=== PATIENT | male | born 1975 | race Caucasian/White ===

== ENCOUNTER 2018-06-07 04:29 | Emergency (ER) | payer MEDICAID, OTHER ==
[~2018-06-07] VITALS: Ht 167.6 cm; Wt 81.6 kg
[~2018-06-07 04:29] MED LIST: DIVA500T53 PO; PHEN100C70 PO
[2018-06-07] MEDS ORDERED: ONDANSETRON HCL 4 MG/2 ML VIAL IV ONE (05:00)
[2018-06-07] MEDS ORDERED: SODIUM CHLORIDE 0.9% 1,000 ML IV ONE (05:00)
[2018-06-07] MEDS ORDERED: NALBUPHINE HCL 10 MG/1ml INJECTION IV ONE (05:00)
[2018-06-07] MEDS ORDERED: PANTOPRAZOLE 40 MG/10 ML VIAL IV ONE (05:00)
[2018-06-07 05:50] LABS: Basophils # (auto) 0.1 uL; Basophils % (auto) 0.5 % (0.0-2.0); Eosinophils # (auto) 0.3 uL; Eosinophils % (auto) 2.5 % (0.0-7.0); Hemoglobin 15.1 g/dL (13.5-17.5); Lymphocytes # (auto) 1.8 uL; Lymphocytes % (auto) 15.2 % (10.0-50.0); Mean Corpuscular Hemoglobin 30.6 pg (28.0-32.0); Mean Corpuscular Hgb Conc. 34.3 g/dL (32.0-36.0); Mean Corpuscular Volume 89.4 fL (80.0-100.0); Monocytes # (auto) 0.8 uL; Monocytes % (auto) 7.1 % (0.0-12.0); Neutrophils # (auto) 8.7 uL; Neutrophils % (auto) 74.7 % (37.0-80.0); Platelet Count (auto) 301 10^3/uL (140-450); Red Blood Cells 4.92 10^6/uL (4.5-5.90); Red Cell Distribution Width 13.2 % (11.8-14.3); White Blood Cell 11.6 10^3/uL (4.4-10.8)
[2018-06-07 06:04] LABS: Amylase 72 U/L (25-115); Lipase 117 U/L (73-393)
[2018-06-07 06:06] LABS: INR 0.96 (0.9-1.15); Partial Thromboplastin Time 30.6 sec (23.78-33.04); Prothrombin Time 10.3 sec (9.27-12.13)
[2018-06-07 06:08] LABS: Albumin 3.8 g/dL (3.4-5.0); Calcium 9.5 mg/dL (8.5-10.1); Magnesium 2.2 mg/dL (1.6-2.6); Potassium 3.3 mmol/L (3.5-5.1)
[2018-06-07 06:11] LABS: BUN/Creatinine Ratio 10.2; Bilirubin, Total 0.9 mg/dL (0.2-1.0); Total Protein 7.7 g/dL (6.4-8.2)
[2018-06-07] MEDS ORDERED: POTASSIUM CHL 10% (20 MEQ/15ML) 15ml ORAL SOLN PO ONE (07:15)
[2018-06-07 07:42] VITALS: BP 138/110
== END 2018-06-07 07:57 | disposition home or self-care (01) ==
LOC: ER 04:31
DX: K22.6 Gastro-esophageal laceration-hemorrhage syndrome (principal); G40.909 Epilepsy, unspecified, not intractable, without status epilepticus; E87.6 Hypokalemia; F12.10 Cannabis abuse, uncomplicated; F17.210 Nicotine dependence, cigarettes, uncomplicated
CPT/HCPCS: 36415; 74176; 80053; 82150; 83605; 83690; 83735; 85025; 85610; 85730; 93005; 94761; 96361; 96374; 96375; 99284; C9113; J2300; J2405; J7030

== ENCOUNTER → 2024-11-20 | Day surgery (SDC) | payer MEDICAID ==
[~2024-11-20] VITALS: Ht 167.6 cm; Wt 100.2 kg
[~2024-11-20] MED LIST changes: +ALEN70TA21 PO; +AML5T PO; +BACITRACIN TOP OINT 1 UD PKG TOP ONE; +BUPIVACAINE 0.25% INJ 50ML VIAL ONE; +BUPIVACAINE 0.5% P/F INJ 10 ML VIAL ONE; +BUPIVACAINE HCL 50 ML ONE; +DIPH25CA66 PO; -DIVA500T53 PO; +GLYCOPYRROLATE 0.2 MG/ML 1ML VIAL ONE; +HYDROmorphone HCL 2 MG/ML VL/or syr IV PRN; +HYDROmorphone HCL 2 MG/ML VL/or syr ONE; +IBUP-1456 PO; +KETAMINE 50mg/ML 1ml syringe ONE; +KETOROLAC TROMETH 30 MG/ML 1ML VIAL ONE; +LIDOCAINE 1% (LOCAL ANESTH.) PF 5ml SDV ONE; +LIDOCAINE 2% (LOCAL ANESTH.) PF 5ml SDV ONE; +LORA-1121 PO; +MELA10TA PO; +MIDAZOLAM HCL 2MG/2ML 2ml VIAL (1mg/ml) ONE; +ONDANSETRON HCL 4 MG/2 ML VIAL IV PRN; +ONDANSETRON HCL 4 MG/2 ML VIAL ONE; -PHEN100C70 PO; +PROPOFOL 10 MG/ML 20 ML IV ONE; +SOTA80TA PO; +fentaNYL CITRATE 100 MCG/2 ML VL ONE
[2024-11-20] MEDS: ceFAZolin 2 GM/D5W50ml 50 ML IV ONE (08:50)
[2024-11-20 10:36] VITALS: PULSE 62; RESP 11; TEMP 97.3; O2SAT 93
[2024-11-20] MEDS: ACETAMINOPHEN IV 100 ML IV ONE (10:47)
[2024-11-20] MEDS: ACETAMINOPHEN IV 1000 MG/100ML (10MG/ML) IV ONE (10:47)
[2024-11-20 11:25] VITALS: PULSE 73; RESP 11; O2SAT 96
[2024-11-20 11:50] VITALS: BP 118/84; PULSE 71; RESP 10; O2SAT 96
--- NOTE | 2024-11-21 04:03 | DVHOP ---
DATE OF SURGERY: 11/20/2024 PREOPERATIVE DIAGNOSES: * Right ankle instability. * Peroneal tendon tear. POSTOPERATIVE DIAGNOSES: * Right ankle instability. * Peroneal tendon tear. * Chondromalacia of the talus. PROCEDURES PERFORMED: * Right ankle arthroscopy. * Synovial debridement. * Peroneal tendon exploration and debridement. * Anterior talofibular ligament repair with Brostrom modification. ANESTHESIA: General with popliteal nerve block. COMPLICATIONS: None. BLOOD LOSS: 10 mL. LINEN ATTENDANT: Lisa Steven PA-C. IMPLANTS USED: Ar[employer]rex FiberTak x2. INDICATION FOR PROCEDURE: The patient is a 49-year-old male who presented to the clinic with a history of right ankle pain and instability. 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 Nonoperative and operative management options were discussed. Surgery in the form of ankle arthroscopy, open ankle ligament repair was discussed with him as he had failed nonoperative management. Benefits, risks, and treatment alternatives were discussed. Specific complications of the surgery such as neurovascular injury, infection, arthrofibrosis, loss of limb or life were discussed. He decided to proceed with surgery. PROCEDURE IN DETAIL: The patient was identified in the preoperative holding area and the surgical site was marked. Consent was verified. He was brought into the operating room and placed supine on the operating table. General anesthesia was administered. Intravenous antibiotics were given. The extremity was prepped and draped in the usual sterile manner. A timeout was called to confirm the identity of the patient, the nature of surgery, the site of surgery, the availability of implants and x-rays and allergies to medications. Initially, ankle arthroscopy was carried out. For this, a small joint scope was used. The joint was insufflated with 10 mL of saline from the anteromedial portal. Next, a small stab incision was made. The skin and the subcutaneous tissue were dissected and the capsule was dissected. A small joint trocar and cannula was inserted. The scope was inserted. A standard anterolateral portal was made. Again, only the skin was incised and a hemostat was inserted to protect the cutaneous nerves. A probe was inserted and the findings were as follows: * Diffuse chondromalacia anterior talus and talar dome, grade 2/3. * Significant synovitis/scar tissue anterolateral aspect. * No loose bodies. * Anterior talofibular ligament tear noted on the distal aspect of the fibula, mild laxity as well as bare spot noted. Synovial debridement was carried out with the help of a small joint shaver. I moved to the open part of the procedure. An incision was made from the distal aspect of the fibula down obliquely to the lateral malleolus and 2 cm beyond. The skin and subcutaneous tissue were dissected. The deep fascia was incised. The peroneal tendons were exposed. The peroneal tendon sheath was exposed. An incision was made, through that the peroneal tendons were exposed, and the brevis and the longus tendons were inspected. A small undersurface tear was noted in the brevis tendon and this was debrided. was not considered to be necessary as overall the tendons were intact. Significant laxity and tear of the ATFL was noted. I decided to repair this with help of all-suture anchors. Two all-suture anchors were inserted. Good fixation was noted. These were double-loaded anchors. All the four pairs were passed through the anterior talofibular ligament as well as the extensor retinaculum as part of the Brostrom modification. All four suture pairs were now tied with the ankle in eversion for excellent repair and fixation. The ankle was very stable. Thorough irrigation was given. The subcutaneous tissue and the skin was closed with 2-0 Vicryl and 3-0 Monocryl. Sterile dressing was applied. A sugar-tong splint was applied with appropriate padding. DISPOSITION: Good, the patient was extubated and taken to the recovery without any complications. PLAN: Plan is to have the patient toe-touch weight bear. We will initiate physical therapy in 2 weeks. Dorsiflexion and plantarflexion allowed, no inversion allowed for 6 weeks. We will start with passive and active-assisted range of motion and then progress to active motion after 6 weeks. MD CALI Horton/MAGNUS/ZENY TID: [id number] RECEIPT: [id number] [facility]
== END | disposition home or self-care (01) ==
LOC: SUR 06:49
PROVIDERS: ATTEND Orthopaedic Surgery Sports Medicine
DX: M25.371 Other instability, right ankle (principal); M94.271 Chondromalacia, right ankle and joints of right foot; S86.311A Strain of muscle(s) and tendon(s) of peroneal muscle group at lower leg level, right leg, initial encounter; S93.491A Sprain of other ligament of right ankle, initial encounter; X58.XXXA Exposure to other specified factors, initial encounter; Y93.89 Activity, other specified; Y92.89 Other specified places as the place of occurrence of the external cause; Y99.8 Other external cause status; M65.871 Other synovitis and tenosynovitis, right ankle and foot; M25.571 Pain in right ankle and joints of right foot
CPT/HCPCS: 27695; 27698; 29897; 64450; C1713; J0169; J0690; J1100; J1171; J1885; J2003; J2250; J2405; J2704; J3010; J3490; 76942; J0131